=== PATIENT | male | born 1935 | race Caucasian/White ===

== ENCOUNTER 2020-11-09 15:23 | Emergency (ER) | payer MEDICARE ==
[~2020-11-09] VITALS: Ht 170.2 cm; Wt 75.8 kg
--- NOTE | ~2020-11-09 | EMS ---
[facility] [address] [place] [address] EMS Patient Care Report Name: ZECHARIAH WOOD Room: [facility] Ezekiel#: [id number] Admission: 11/09/20 Attend Phys: Discharge: Date of : 33 Report #: [id number] THIS REPORT FOR: //name// Report Transmitted: 11/09/2020 15:47 EMS Care Summary [facility] [place] Incident @ 11/09/2020 14:36 Incident Location [address] [address] Patient Zechariah Wood Male, 85 Years 1935 Patient Address [address] [facility] Patient History Hypertension (HTN), Patient Allergies No known allergies, Chief Complaint Weakness Disposition Transported No Lights/[place] Dispatch Reason Sick Person Transported To [facility] Narrative Unit 319 was dispatched for man down. They arrived on scene and soon requested the presence of the water supervisor and I. We arrive on scene to [facility] and unit 319. I switch places with [employer] on that unit, and take lead on the call. Patient at the moment is alert and talking. EMT [place] states the call was for a man down at the [employer]. The patient went to stand up and became unresponsive. Patient was not alert when EMS first arrived; He was extremely hypotensive and had a bradycardic heart rate. [facility] and [facility] 319 crew were able to get the patient [facility] [address] [place] [address] EMS Patient Care Report Name: ZECHARIAH WOOD Room: [facility]#: [id number] Admission: 11/09/20 Attend Phys: Discharge: Date of : 33 Report #: [id number] to the cot, patient started to come around more when being moved.[employer] on rescue two gained IV access, put patient on oxygen, hung 1 liter of Lactated Ringer, and measure blood glucose. I then come on scene and take lead. Primary assessment shows alert and oriented male that answers questions appropriately. Patient is warm, non diaphoretic, with a strong, regular pulse. Pulse rate is bradycardic at the moment. Obtain a 12 lead EKG ad retake patients blood pressure. Began transport to [place]. Secondary assessment completed. Patient states at the restaurant he went stood up to go have a bowel movement and became light headed and weak. He reports he did not fall and quickly sat down. He states he has no pain at the moment. Give radio report to receiving facility. Arrive and unload patient without incident, go to room 16. Move patient with help from nurse to hospital bed with no incident. Give report to receiving nurse and obtain all needed signatures. Initial Vitals @14:43SpO2: 91, @14:51SpO2: 100, @14:57SpO2: 100, @15:02SpO2: 98, @15:07SpO2: 97, @15:15SpO2: 100, @14:53 @14:43P: 53,R: 16,BP: 66/42, @14:53P: 59,R: 16,BP: 125/52, @15:00P: 57,R: 16,BP: 123/55, @15:07P: 54,R: 16,BP: 138/52, @15:15P: 54,R: 16,BP: 130/55, @14:43GCS: 12, @14:53GCS: 15, @15:00GCS: 15, @15:07GCS: 15, @15:15GCS: 15, @14:41 @14:47Glucose: -2, Assessments @14:41MENTAL:SKIN:HEENT:LUNG SOUNDS:ABDOMEN:PELVIS//GI:EXTREMITIES:PULSE:NEURO: Impression Generalized Weakness Procedures @14:48Other - Medication - 1000.000 Milliliters (ml) - Intravenous (IV)Response: Improved@14:43Oxygen Complications: ,Response: Improved@14:46 cc () Site: Other Peripheral (Not Listed)Response: [place] [address] EMS Patient Care Report Name: ZECHARIAH WOOD [id number] Admission: 11/09/20 Attend Phys: Discharge: Date of : 33 Report #: [id number] UnchangedSucceeded@14:5312-Lead ECGResponse: UnchangedSucceeded Timeline 14:36,Call Received 14:36,Dispatch Notified 14:36,Psap Call 14:36,Dispatched 14:36,En Route 14:39,On Scene 14:41,At Patient 14:41,BP: / M,PULSE: ,RR: R,SPO2: Ox,ETCO2: ,BG: ,PAIN: ,GCS: , 14:43,Oxygen Complications: ,,Response: Improved 14:43,BP: / M,PULSE: ,RR: R,SPO2: 91 Ox,ETCO2: ,BG: ,PAIN: ,GCS: , 14:43,BP: 66/42 M,PULSE: 53,RR: 16 R,SPO2: Ox,ETCO2: ,BG: ,PAIN: ,GCS: , 14:43,BP: / M,PULSE: ,RR: R,SPO2: Ox,ETCO2: ,BG: ,PAIN: ,GCS: 12, 14:46, cc Site: Other Peripheral (Not Listed),Response: UnchangedSucceeded, 14:47,BP: / M,PULSE: ,RR: R,SPO2: Ox,ETCO2: ,BG: -2,PAIN: ,GCS: , 14:48,Other - Medication - 1000.000 Milliliters (ml) - Intravenous (IV),Response: Improved 14:51,BP: / M,PULSE: ,RR: R,SPO2: 100 Ox,ETCO2: ,BG: ,PAIN: ,GCS: , 14:53,12-Lead ECG,Response: UnchangedSucceeded, 14:53,BP: / M,PULSE: ,RR: R,SPO2: Ox,ETCO2: ,BG: ,PAIN: ,GCS: , 14:53,BP: 125/52 M,PULSE: 59,RR: 16 R,SPO2: Ox,ETCO2: ,BG: ,PAIN: ,GCS: , 14:53,BP: / M,PULSE: ,RR: R,SPO2: Ox,ETCO2: ,BG: ,PAIN: ,GCS: 15, 14:57,BP: / M,PULSE: ,RR: R,SPO2: 100 Ox,ETCO2: ,BG: ,PAIN: ,GCS: , 14:58,Depart Scene 15:00,BP: 123/55 M,PULSE: 57,RR: 16 R,SPO2: Ox,ETCO2: ,BG: ,PAIN: ,GCS: , 15:00,BP: / M,PULSE: ,RR: R,SPO2: Ox,ETCO2: ,BG: ,PAIN: ,GCS: 15, 15:02,BP: / M,PULSE: ,RR: R,SPO2: 98 Ox,ETCO2: ,BG: ,PAIN: ,GCS: , 15:07,BP: / M,PULSE: ,RR: R,SPO2: 97 Ox,ETCO2: ,BG: ,PAIN: ,GCS: , 15:07,BP: 138/52 M,PULSE: 54,RR: 16 R,SPO2: Ox,ETCO2: ,BG: ,PAIN: ,GCS: , 15:07,BP: / M,PULSE: ,RR: R,SPO2: Ox,ETCO2: ,BG: ,PAIN: ,GCS: 15, 15:15,BP: / M,PULSE: ,RR: R,SPO2: 100 Ox,ETCO2: ,BG: ,PAIN: ,GCS: , 15:15,BP: 130/55 M,PULSE: 54,RR: 16 R,SPO2: Ox,ETCO2: ,BG: ,PAIN: ,GCS: , 15:15,BP: / M,PULSE: ,RR: R,SPO2: Ox,ETCO2: ,BG: ,PAIN: ,GCS: 15, 15:16,At Destination 15:35,Call Closed Disclaimer v1.1 Copyright 2020 [employer] This EMS Care Summary contains data elements from the applicable legal record (which may be displayed differently). It is designed to provide pertinent information for the following purposes: continuity of care, clinical quality, and state data reporting. The complete legal record is available to ED staff and administrators of the receiving hospital in [employer] Patient Tracker. All data is provided "as is."
[~2020-11-09 15:23] MED LIST: ADULT LOW DOSE81 MG PO; AMBIEN 10 MG TA10 MG PO; CARDURA2 MG PO; CRESTOR5 MG PO; FENOFIBRATE160 MG PO; FISH OIL 1,001000 MG PO; HYDROCODONE-AP1 EAC6 PO; LANTUS SQ; LASIX 40 MG TAB40 M1 PO; MULTIVITAMINS PO; NITROGLYCERIN0.4 MG SL; NOVOLOG100 UNIT/1 SQ; PLAVIX 75 MG TA75 MG PO; PRILOSEC; PRILOSEC 20 MG20 MG PO; PROCARDIA XL30 MG PO; PROTONIX40 M2 PO; TOPROL XL50 MG PO; VYTORIN 10-201 EACH PO
[2020-11-09 16:17] LABS: ABSOLUTE EOSINOPHILS 0.1 thou/uL (0.0-0.7); ABSOLUTE MONOCYTES 0.4 thou/uL (0.0-1.2); ABSOLUTE NEUTROPHILS 5.1 thou/uL (1.6-8.1); BASOPHILS 0.3 %; EOSINOPHILS 1.6 %; HEMATOCRIT 28.7 % (42.0-52.0); HEMOGLOBIN 9.7 gm/dL (14.0-18.0); LYMPHOCYTES 14.7 %; MCHC 33.7 g/dL (28.0-37.0); MCV 89.1 fL (80.0-100.0); MONOCYTES 5.4 %; MPV 7.2 fl. (7.2-11.1); NUCLEATED RBCS 0 /100WBC; PLATELET COUNT* 199 thou/uL (150-400); RBC 3.23 mil/uL (4.50-6.00); RDW-CV 15.2 % (10.5-14.5); WBC 6.6 thou/uL (4.0-11.0)
[2020-11-09 16:26] LABS: CALCIUM 8.7 mg/dL (8.5-10.1); CREATININE 1.6 mg/dL (0.6-1.3); POTASSIUM 4.6 mmol/L (3.5-5.1)
[2020-11-09 16:30] LABS: ALBUMIN 3.3 g/dL (3.4-5.0); TOTAL BILIRUBIN 0.6 mg/dL (<0.1-1.0); TOTAL PROTEIN 6.7 g/dL (6.4-8.2)
[2020-11-09 19:09] VITALS: BP 127/51
--- NOTE | 2020-11-10 12:01 | EKG ---
[place] [address] ELECTROCARDIOGRAM REPORT Name: RYANYELITZA Room: [facility].#: [id number] Admission: 11/09/20 Attend Phys: Discharge: 11/09/20 Date of : 33 Date of Service: 11/09/20 1556 Report #: [id number] THIS REPORT FOR: //name// [place] ED Test Date: 2020-11-09 Test Time: 15:56:40 Pat Name: YELITZA DAVIS Department: Room: Gender: Manager Of Financial Planning: : 1935 Requested By: Boni Valente Order Number: [id number] MD: Darvin Patel Measurements Intervals [place] Rate: 56 P: 36 CT: 211 QRS: -51 QRSD: 124 T: 32 QT: 486 QTc: 470 Interpretive Statements Sinus rhythm Nonspecific IVCD with LAD Left ventricular hypertrophy Compared to ECG 09/22/2010 08:23:29 Intraventricular conduction delay now present Left ventricular hypertrophy now present Left anterior fascicular block persists Myocardial infarct finding no longer present Electronically Signed On 11-10-2020 12:01:35 CDT by Darvin Patel [email or web address] <ELECTRONICALLY SIGNED> By: Darvin Patel MD, [facility] 11/10/20 1201 1556 1556 Darvin Patel MD, [facility] /EPI
== END 2020-11-09 19:10 | disposition home or self-care (01) ==
LOC: M.ERS 15:23
PROVIDERS: Emergency Medicine Emergency Medical Services
DX: I95.1 Orthostatic hypotension (principal); E11.9 Type 2 diabetes mellitus without complications; E78.00 Pure hypercholesterolemia, unspecified; I10 Essential (primary) hypertension; K21.9 Gastro-esophageal reflux disease without esophagitis